=== PATIENT | male | born 1985 | race Hispanic/Latino ===

== ENCOUNTER 2016-10-17 20:55 | Inpatient (IN) | payer OTHER ==
[~2016-10-17] VITALS: Ht 180.3 cm; Wt 136.7 kg
[~2016-10-17 20:55] MED LIST: ANTIVERT 25MG #1 PAC PO; BENZTROPINE MESY1 M1 PO; HALDOL PO; HALOPERIDOL10 M1 PO; HYDROXYZINE HCL50 M1 PO; HYDROXYZINE PAM50 MG PO; KEFLEX500 M1 PO; LUNESTA3 MG PO; SEROQUEL XR300 M1 PO
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
--- NOTE | 2016-10-17 20:59 | NUR ---
PEC RECIEVED COPIED AND PLACED IN CHART
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
--- NOTE | 2016-10-17 21:10 | NUR ---
1 VALUABLES BAG TO SAFE
--- NOTE | 2016-10-17 21:14 | NUR ---
PT REQUESTING TO TAKE A SHOWER. EDUCATED THAT BLOODWORK AND URINE NEED TO BE OBTAINED AND CHANGED INTO SCRUBS
--- NOTE | 2016-10-17 21:30 | NUR ---
blood drawn and sent (blue sst lav) and urine trio sent. pt changed into blue scrubs. medicated with haldol and atarax per Emar. Patient states, "my family doesn't care that i want to kill myself and i have a plan. I have heart failure, they don't care. I've committed a lot of sins and I dont have a . My family thinks I'm retarded. Can i go to [facility] now?"
--- NOTE | 2016-10-17 21:46 | NUR ---
ASSUMED CARE OF PT PER JESUS ENRIQUE. PT SLEEPING IN MIDDLE BROOKB
[2016-10-17 22:16] LABS: ABSOLUTE BASOPHIL COUNT 0 /CUMM (0.0-0.2); ABSOLUTE EOSINOPHIL COUNT 0.2 /CUMM (0.0-0.7); ABSOLUTE GRANULOCYTE CT 4.7 /CUMM (1.4-6.5); ABSOLUTE LYMPH COUNT 2.6 /CUMM (1.2-3.4); ABSOLUTE MONOCYTE COUNT 0.6 /CUMM (0.10-0.60); BASOPHIL % 0.4 % (0.0-2.0); EOSINOPHIL % 2.5 % (0-5); GRANULOCYTE % 57.4 % (42.2-75.2); MEAN CORPUSCULAR HGB 28.5 PG (27.0-31.0); MEAN CORPUSCULAR HGB CONC 33.2 G/DL (33.0-37.0); MEAN CORPUSCULAR VOLUME 85.9 FL (80.0-94.0); MEAN PLATELET VOLUME 9.4 FL (7.4-10.4); PLATELET COUNT 195 /CUMM (130-400); RBC DISTRIBUTION WIDTH 13.7 % (11.5-14.5); RED BLOOD CELL CT 4.89 /CUMM (4.70-6.10); WHITE BLOOD CELL COUNT 8.2 /CUMM (4.8-10.8)
--- NOTE | 2016-10-17 22:57 | NUR ---
PT SLEEPING WITH RR, WILL CONTINUE TO MONITOR, SITTER IN PLACE FOR SAFETY. EAR PLUGS PROVIDED TO PT BY THIS RN FOR SLEEP AND COMFORT.
--- NOTE | 2016-10-17 23:59 | NUR ---
PT SLEEPING WITH RR, BILATERAL CHEST RISE AND FALL NOTED. PT NOTED TO BE SLEEPING ON ABD/LEFT SIDE SNORING. SITTER IN PLACE FOR SAFETY.
--- NOTE | 2016-10-18 01:36 | NUR ---
PT SLEEPING WITH RR, TOSSING AND TURNING, BILATERAL CHEST RISE AND FALL NOTED. WILL CONTINUE TO MONITOR, SITTER IN PLACE FOR SAFETY.
--- NOTE | 2016-10-18 04:01 | NUR ---
PT SLEEPING WITH RR, TOSSING AND TURNING. SITTER IN PLACE FOR SAFETY, WILL CONTINUE TO MONITOR
--- NOTE | 2016-10-18 06:09 | NUR ---
PT AWAKE AND ASKING FOR TISSUES AND WHEN BREAKFAST WILL ARRIVE, THIS RN PROVIDED PT WITH TISSUES AND TOLD PT 0700. SITTER IN PLACE FOR SAFETY.
--- NOTE | 2016-10-18 06:56 | NUR ---
PT AWAKE AND EATING BREAKFAST
--- NOTE | 2016-10-18 08:16 | NUR ---
ASSUMED CARE OF PT WHO IS CURRENTLY SLEEPING. RR EVEN AND UNLABORED. SITTER AT BEDSIDE
[2016-10-18] MEDS ORDERED: HALDOL DEC100 MG/1 M IM (08:52)
--- NOTE | 2016-10-18 09:49 | NUR ---
PT BECOMING ANXIOUS AND ARGUMENTITIVE WITH SITTER REGARDING LEAVING THE DEPARTMENT BECAUSE HE HAS NOT BEEN SEEN BY CRISIS. TALENT SCOUT CURRENTLY SPEAKING WITH PATIENT
--- NOTE | 2016-10-18 10:02 | NUR ---
CRISIS WITH PT FOR EVALUATION
--- NOTE | 2016-10-18 11:12 | NUR ---
RESUMED CARE OF PT FROM PREVIUS RN. PT RESTING QUIETLY ON STRETCHER. PT ADVISED AWAITING FOR CONULT WITH [id number]. NAD NOTED WILL CONTINUE TO MONITOR.
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
--- NOTE | 2016-10-18 11:45 | NUR ---
Patient on PEC, crisis conducting bed search. Referrals sent to [facility], [facility], and [facility].
--- NOTE | 2016-10-18 13:51 | NUR ---
PT RESTING QUIETLY ON STRETCHER. NAD NOTED. VSS. PT USED PHONE AND HAS BEEN CALM AND COOPERATIVE WITH STAFF AT THIS TIME.
--- NOTE | 2016-10-18 14:06 | NUR ---
PT REQUESTING NICOTINE GUM. DR ANDREW MADE AWARE
--- NOTE | 2016-10-18 14:33 | NUR ---
PT REQUESTING A PENTACOSTAL OR PROTESTANT MUSSEL FARMER. VISUAL TRAINING AIDE SERVICES PAGED
--- NOTE | 2016-10-18 15:11 | NUR ---
PT REQUESTING ATARAX AND HALDOL. CONSULT WITH MD FOR ORDERS. PT WAS CALM AND COOPERATIVE AND RETING ON THE STRETCHER.
--- NOTE | 2016-10-18 21:43 | NUR ---
PT C/O ANXIETY, BECOMING AGITATED, REQUESTING MEDS TO HELP HIM TO SLEEP. MD CASIMIRO MADE AWARE. PT MEDICATED WITH HALDOL, ATIVAN, AND ATARAX PER EMAR. SITTER AT BEDSIDE.
--- NOTE | 2016-10-18 23:20 | NUR ---
ASSUMED CARE OF PT PER JESUS PAULINO. PT SLEEPING WITH RR, WILL CONTINUE TO MONITOR. SITTER IN PLACE FOR SAFETY.
--- NOTE | 2016-10-19 01:30 | NUR ---
PT SLEEPING WTIH RR, BILATERAL CHEST RISE AND FALL NOTED. SITTER IN PLACE FOR SAFETY. WILL CONTINUE TO MONITOR
--- NOTE | 2016-10-19 02:15 | NUR ---
PT NOTED TO BE ASLEEP ON STRETCHER. NORMAL RR NOTED. SITTER IN PLACE.
--- NOTE | 2016-10-19 04:38 | NUR ---
PT AWAKE AND ASKED FOR A CUP OF WATER, SITTER IN PLACE FOR SAFETY.
--- NOTE | 2016-10-19 06:57 | NUR ---
patient remains sleeping at present. lights remain dimmed to promote rest and comfort. sitter remains in place for constant observation and patient safety. will continue to monitor.
--- NOTE | 2016-10-19 07:13 | NUR ---
PATIETN AMB TO RESTROOM. DID NOT REQUIRE ASSISTANCE - SITTER IN PLACE FOR SAFETY. AMB RETURN TO STRETCHER WITHOUT ASSISTANCE.
--- NOTE | 2016-10-19 08:53 | NUR ---
WAITING ON PHARMACY FOR HALDOL 10MG.
--- NOTE | 2016-10-19 09:07 | NUR ---
MED WITH ATARAX AND HALDOL PER PATIENT REQUEST. SITTER REMAINS IN PLACE FOR CONSTANT OBSERVATION AND PATIENT SAFETY.
--- NOTE | 2016-10-19 13:15 | NUR ---
RESUMED CARE OF PT FROM PREVIOUS RN. PT RESTING QUIETLY ON STRETCHER. PT IS CALM AND COOPERATIVE WITH STAFF. NAD NOTED. VSS.
--- NOTE | 2016-10-19 13:36 | NUR ---
PT RESTING ON STRETCHER. PT VOICES CONCERN THAT HIS "MEDICATIONS ARE NOT STABILIZING [HIM]". pT APPEARS SLIGHTLY ANXIOUS BUT IS STILL ABLE TO BE RE-DIRECTED. PT PROVIDED A SNACK. NAD NOTED. WILL CONTINUE TO CLOSELY MONITOR.
--- NOTE | 2016-10-19 14:25 | NUR ---
PT RESTING ON STRETCHER IN HALLWAY STATING HE COULD NOT BREATH. PT IN AD. PT STATES IN CHINESE THAT HE IS "HERE TO REGULATE HIMSELF MEDS". PT WAS ABLE TO BE EASILY RE-DIRECTED. PT PROVIDED A SNACK AND CONSTANT OBS MAINTAINED. NAD NOTED. VSS.
--- NOTE | 2016-10-19 14:55 | NUR ---
PT WAS FOUND TO BE INAPPROPRIATELY TOUCHING HIMSELF IN THE HALLWAY. PT ADVISED THIS WAS NOT APPROPRIATE BEHAVIOR AND WAS EASILY RE-DIRECTED. pT IS STILL VERY ANXIOUS IN REGARDS TO HIS PLAN OF CARE. AWAITING FURTHER ORDERS AND DISPO, NAD NOTED. VSS.
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
--- NOTE | 2016-10-19 18:05 | NUR ---
PT COOPERATIVE IN ROOM WITH SITTERS PRESENT. CONTINUES TO PRESENT WITH SOMEWHAT BIZARRE, FLAT AFFECT. COOPERATIVE AND FOLLOWING BEHAVIORAL EXPECTATIONS AT THIS TIME. OFFERS NO PHYSICAL COMPLAINTS
--- NOTE | 2016-10-19 19:41 | NUR ---
NOTIFIED OF PTS BP BY [facility]. AWARE. PLAN IS TO RECHECK IN AN HOUR
--- NOTE | 2016-10-19 20:27 | NUR ---
PT NOW PLACED IN RM 14. PT PROVIDED SNACK AND TOOK SHOWER PRIOR TO DINNER. PT IS CALM AD COOPERATIVE AT THIS TIME. NAD NOTED. VSS.
--- NOTE | 2016-10-19 21:53 | NUR ---
PT MEDICATED WITH 10MG HALDOL AND 25MG ATARAX PRN AT PTS REQUEST
--- NOTE | 2016-10-19 22:37 | NUR ---
PT RESTING QUIETLY. NAD NOTED. VSS. CONTINUOUS OBS MAINTAINED. WILL CONTINUE TO MONITOR.
--- NOTE | 2016-10-20 | NUR ---
PT RESTING ON BED. NO DISTRESS NOTED. SITTER IN PLACE.
--- NOTE | 2016-10-20 02:02 | NUR ---
PT REMAINS ASLEEP AT THIS TIME W/RR NOTED. NAD. EQUAL CHEST RISE AND FALL. SITTER REMAINS IN CLEAR VIEW FOR SAFETY.
--- NOTE | 2016-10-20 04:17 | NUR ---
PT REMAINS ASLEEP AT THIS TIME W/RR NOTED. NAD. SITTER IN ATTENDANCE
--- NOTE | 2016-10-20 06:08 | NUR ---
PT INTERMITTENTLY AWAKE/BACK TO SLEEP. PT OFFERING NO COMPLAINTS AT THIS TIME. NAD. RR NOTED. SITTER REMAINS AT BEDSIDE
--- NOTE | 2016-10-20 08:02 | NUR ---
PT SLEEPING, REG RR NOTED. SITTER IN ATTENDANCE.
--- NOTE | 2016-10-20 09:45 | NUR ---
PT UP IN ROOM, STATING "I NEED TO GO, I HAVE COURT AND I HAVE CARE." PT REDIRECTABLE AT THIS TIME, UNDERSTANDS THAT HE NEEDS TO WAIT FOR CRISIS, HOWEVER, STATING "THEY NEED TO SEE ME FIRST, I CANT STAY HERE, IM NOT GOING TO OTHER HOSPITALS."
--- NOTE | 2016-10-20 11:05 | NUR ---
POC FOR PT TO BE ADMITTED.
--- NOTE | 2016-10-20 11:47 | NUR ---
MEDICATED WITH ATARAX PO (SEE MAR)
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
--- NOTE | 2016-10-20 13:55 | NUR ---
PT RESTING IN ROOM, CALM/COOPERATIVE.
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
--- NOTE | 2016-10-20 15:31 | NUR ---
ASSUMED CARE OF PT. PT SITTING IN CHAIR IN ROOM. ASKING FOR SOMETHING TO EAT. OTHERWISE WITHOUT COMPLAINTS
--- NOTE | 2016-10-20 15:55 | NUR ---
PT SITTING UP IN CHAIR. LEG BOUNCING CONSISTENT WITH ANXIETY. PT ASKING FOR SOEMTHING TO RELAX HIM. GIVEN IM ATIVAN. PT GIVEN BOX DINNER
--- NOTE | 2016-10-20 16:27 | NUR ---
REPORT CALLED TO LEI IN [facility]
--- NOTE | 2016-10-20 17:09 | NUR ---
SAVAGE RN FROM "[facility]" RETURNED CALL FROM A CONNIE STAFF MEMBER-POSSIBLY SUNI TOY STUFFER. SAVAGE'S NUMBER IS [phone] IF WE HAVE ANY QUESTIONS FOR HER
[2016-10-20 19:54] VITALS: BP 165/97
--- NOTE | 2016-10-20 21:13 | NUR ---
PT ADJUSTING TO THE UNIT. PT SOMEWHAT BIZARRE, BUT NO THREATENING BEHAVIORS. PT QUIET AND ON THE PERIPHERY.
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
[2016-10-21 07:59] VITALS: BP 152/84
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
--- NOTE | 2016-10-21 12:19 | SOCIAL WORKER PROG NOTE PSYCH ---
Social Work Progress Note Progress Note 11:10am This health science writer met with patient. Patient presented as guarded and irritable. Patient was unwilling to discuss current stressors and/or events that led to this hospitalization other than to say that he had been suicidal. Upon discussing outpatient providers, patient acknowldeged that he has been engaged in treatment at [facility] and would like to return to them after discharge. Patient's irritability increased when reviewing the TOO for Care and he left the room. Patient will be approached at a later time regarding the TOO.
[2016-10-21 12:36] VITALS: BP 145/85
--- NOTE | 2016-10-21 14:37 | NUR ---
PT IS EASILY IRRITATED THIS SHIFT. BECAME ANGRY WHEN HE THOUGHT THE "NURSE DIDN'T CALL ME FOR MY MEDS", WHEN IN REALITY HE DIDN'T HAVE ANY MEDICATION DUE AT THE MOMENT. PT CAN BE DEMANDING AT TIMES ASKING FOR PAPER, COLORING PENS/MARKERS. PT IS REDIRECTABLE FOR THE MOST PART. INTERMITTENTLY ATTENDING GROUPS THIS AM. VS ARE STABLE AND DENIES ANY SI/HI TO THIS MHW.
[2016-10-21 16:03] VITALS: BP 152/95
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
[2016-10-21 20:19] VITALS: BP 144/85
--- NOTE | 2016-10-21 22:08 | NUR ---
PT IN ROOM MAJORITY OF THE EVENING. HIS INTERACTIONS WITH HIS PEERS HAVE BEEN MINIMAL. PT IS EASILY IRRITATED ABOUT SMALL THINGS SUCH OPENING HIS DOOR TO CHECK ON HIM, NOT PASSING OUT MEALS RIGHT AWAY WERE JUST A FEW THINGS THAT IRRITATED HIM TONIGHT. PT SPENT MOST OF THE NIGHT DRAWING PICTURES OF ROOSTERS, AND CHICKENS. HE IS DEMANDING WHEN HE DOES NOT GET HIS NEEDS MET RIGHT AWAY. PT DENIES THOUGHTS TO HURT HIMSELF WHEN ASKED.
[2016-10-22 08:20] VITALS: BP 134/72
--- NOTE | 2016-10-22 11:01 | CP SOUTH PROGRESS NOTE PSYCH ---
Psych (Inpt) Progress Note Progress Note Include the following elements, when applicable: Involvement in the active treatment of the patient with behavioral observations of the patient and the patient's response to the treatment. Review of the ongoing treatment process in the context of the treatment plan. Indication of how multi-disciplinary staff members are carrying out the treatment plan. Plans for future interventions and recommendations for revision of the treatment plan. Liaison with other physicians/providers. Progress Note: I discussed this patient's progress to date, current mental status, treatment process in the context of the treatment plan, and discharge planning with staff/ team in the daily morning inpatient team meeting. I also met with the patient myself in individual session. Current Medications Sig/Joe Start time Last Medication Dose Route Stop Time Status Admin Benztropine Mesylate 1 MG BID 10/20 2199 AC 10/22 PO 0939 Haloperidol 100 MG Q30D 10/24 1000 CANr IM Haloperidol 5 MG .STK-MED ONE 10/21 1820 DC PO 10/21 182 Haloperidol 10 MG AT BEDTIME 10/20 2199 AC 10/21 PO 215 Haloperidol 5 MG Q6-PRN PRN 10/20 2144 AC 10/21 PO 1820 Haloperidol 100 MG .[EVERY 4 WEEKS] 10/20 213 CAN IM Hydroxyzine HCl 25 MG Q6-PRN PRN 10/20 2144 AC 10/21 PO 215 Nicotine 2 MG Q2 HRS NEEDED PRN 10/20 2144 AC 10/21 PO 1819 Vital Signs Date Time Temp Pulse Resp B/P B/P Pulse O2 O2 Flow FiO2 Mean Ox Delivery Rate 10/22 0820 97.6 64 134/72 10/21 2018 98.1 71 144/85 10/21 1603 77 152/95 10/21 1236 60 145/85 Laboratory Tests 10/22 0625 Chemistry Potassium (3.5 - 5.1 mmol/L) 4.2 Triglycerides (<150 mg/dL) 94 Cholesterol (< 200 MG/DL) 151 LDL Cholesterol, Calc (65 - 129 mg/dL) 108 HDL Cholesterol (40 - 60 mg/dL) 25 L Cholesterol/HDL Ratio (0.00 - 4.88 %) 6 H TSH (0.270 - 4.200 uIU/mL) 3.660 A: Chart, progress notes, vital signs and medication list reviewed. Vital signs within normal limits. TSH wnl. Low HDL and high Cholesterol/HDL ratio. Rpt potassium wnl. Per nursing staff, patient shows better behavioral and physical control today. Less irritable. More visible in the milieu, drawing. Interacting minimally but appropriately with staff. [facility] confirmed that patient is an active patient. Current medication list received: Haldol 10mg nightly, Haldol Decanoate 100mg IM [id number] , Hydroxyzine 50mg BID PRN anxiety. Haldol Dec last administered on 09/23/16, confirmed by nursing supervisor dials, Regi, of [facility]. Spoke to JESUS Burleson, from [facility]. States he has worked with patient for the last 2-3 years. At baseline patient is paranoid and suspicious of is family and neighbors. To Benjy' knowledge he has never physically acted out towards his neighbors. Reports that in April 2016 he had been on Haldol 20mg po nightly for psychosis, which he did well on. Reports patient tolerated this w/o symptoms of EPS. However, patient had reported that he did not like how he felt on this dose. He began refusing dosage. At that time, Benjy had a conversation with Dr. Galloway from [facility] which resulted in Dr. Galloway decreasing HS dose to 10mg nightly. Benjy reports that the patient's symptoms were better managed on 20mg nightly in addition to Haldol Dec. He confirmed Haldol Dec dosage of 100mg IM [id number]. Patient seen at 3:00PM. Patient reports meeting / Care embedded case manager Beata on unit today. He requested tx team speaks to her to arrange after care appointments. Reasurred patient that would take place. States feeling on edge today. Appears quite somatic. Reports he feels he had a heart attack last night. States he had one at age 23 in [place]. Could not remember the name of the hospital where he had been hospitalized. Denies being treated by a brew house supervisor in his lifetime. VSS. Denies palpitations, shortness of breath, dizziness. No significant cardiac findings on H&P per assistance representative Dr. Rian Mora. Patient presently asymptomatic. Today, patient denies auditory and visual hallucinations. + somatic paranoia, preoccupied. Feels his body is "destructing." Could not articulate what he means by this. Became briefly tearful. Reports racing thoughts, variable moods. Made inconsistent reports regarding his quality of sleep. First stated he cannot sleep at night, then reports sleeping well by using "strategies," i.e. counting backwards from 100. Reports appetite and energy level are normal. Recommendation made to add Depakote for mood stabilization. Patient refused. Stated he will only take Haldol. He requested an increase in HS dose to 20mg. Informed him we will first obtain an EKG to r/o any contraindication to increase current dose of Haldol. Also informed patient that he is due for next dose of Haldol Decanoate tomorrow. He verbalized understanding, is agreeable. Patient tolerating medications well, denies SEs. Amenable to tx plan discussed above. P: -monitor for safety, mood, psychosis, SI. -obtain EKG; if wnl will increase Haldol to 15mg po nightly. Will continue PRN Haldol 5mg Q6H agitation/psychosis. -cont Cogentin 1mg BID. -Haldol Decanoate 100mg IM scheduled for tomorrow. -dispo planning per primary team.
--- NOTE | 2016-10-22 12:16 | NUR ---
PT DID NOT ATTEND ANY GROUPS THIS MORNING AND HE ISOLATED IN HIS ROOM. HE TAKES HIS MEDS WITHOUT A PROBLEM. HE DENIED ANY THOUGHTS OF SUICIDE OR SELF HARM WHEN ASKED
[2016-10-22 12:29] VITALS: BP 142/66
--- NOTE | 2016-10-22 15:57 | SOCIAL WORKER PROG NOTE PSYCH ---
Social Work Progress Note Progress Note This chart writer was informed by nursing staff that the patient was meeting with his rifle case repairer, Beata aBiley, from [facility] who requested to meet with me. This chart writer introduced self to Lorenzo Bailey. Patient inquired as to why I was there and was reminded that I am patient's social security specialist. He continues to present as guarded with this chart writer. Patient was in agreement with this chart writer speaking with Lorenzo Bailey following their discussion. 3:22pm Beata Bailey was contacted by phone as this chart writer was not available to meet with her following her meeting with the patient. She stated that the patient typically presents as defensive and paranoid when he is asked questions. She stated that he is guarded with his therapist at [facility] and generally more open/ less guarded with the [facility] psychiatrist. Beata stated that in addition to medication management, individual therapy and case management he utilizes visiting nurse services, [facility], (primary nurse, Shalini Terry RN, ). Beata also added that the patient has a pending court case and will inform this chart writer if she is informed of the date. [facility] will be contacted when a discharge date is identified in order to schedule outpatient appointments.
[2016-10-22 17:17] VITALS: BP 144/60
[2016-10-22 20:01] VITALS: BP 160/95
--- NOTE | 2016-10-22 20:51 | NUR ---
PT IS ISOLATIVE AND WITHDRAWN, REMAINING IN ROOM FOR MAJORITY OF EVENING. MINIMAL INTERACTION WITH PEERS OR STAFF. PT HAS A VERY IRRITABLE EDGE AND REPORTS "I WANT TO LEAVE RIGHT NOW." OVERALL COOPERATIVE AND COMPLIANT WITH STAFF. NO COMPLAINTS OR SI REPORTED. PT HAS ANXIOUS MOOD AND CONSTRICTED/IRRITABLE AFFECT.
[2016-10-23 07:44] VITALS: BP 120/94
--- NOTE | 2016-10-23 10:34 | NUR ---
PT IS IRRITABLE AT TIMES-- YELLING AT STAFF MEMBERS FOR OPENING HIS DOOR DURING ROUTINE Q15'S. PT WAS EXPLAINED TO THAT THIS IS ROUTINE AND NECESSARY AND HE RETREATED BACK TO HIS ROOM. PT IS EASILY AGITATED WHEN ASKED TO COME OUT FOR VS/MEDICATIONS. NOT ATTENDING GROUPS. VS ARE STABLE AND DENIES ANY SI/HI TO THIS MHW.
[2016-10-23 12:13] VITALS: BP 130/82
--- NOTE | 2016-10-23 12:16 | SOCIAL WORKER PROG NOTE PSYCH ---
Social Work Progress Note Progress Note Determination Status: PENDED The services requested require additional review. You will be contacted regarding the status of this request if further information is needed. An authorization decision will be made within the required timeframes and details of that decision may be found under the member's authorization history. Member Name Member ID Member Subscriber Name Subscriber ID IRVING ROE JR [id number] IRVING ROE [id number] Pended Authorization # Client Authorization # Type of Request [id number] CONCURRENT Date of Admission/ Start of Services Requested From Submission Date 10/20/2016 10/23/2016 10/23/2016
--- NOTE | 2016-10-23 14:24 | SOCIAL WORKER PROG NOTE PSYCH ---
See Addendum Social Work Progress Note Progress Note This technical publications writer spoke with patient regarding interest in a family meeting. Patient initially appeared interested, however, ultimately stated that a meeting with his family is not needed as "I'm 31 years old." Patient continues to present as guarded during his discussion with this technical publications writer.
--- NOTE | 2016-10-23 15:41 | CP SOUTH PROGRESS NOTE PSYCH ---
Psych (Inpt) Progress Note Progress Note Include the following elements, when applicable: Involvement in the active treatment of the patient with behavioral observations of the patient and the patient's response to the treatment. Review of the ongoing treatment process in the context of the treatment plan. Indication of how multi-disciplinary staff members are carrying out the treatment plan. Plans for future interventions and recommendations for revision of the treatment plan. Liaison with other physicians/providers. Progress Note: I discussed this patient's progress to date, current mental status, treatment process in the context of the treatment plan, and discharge planning with staff/ team in the daily morning inpatient team meeting. I also met with the patient myself in individual session. Current Medications Sig/Joe Start time Last Medication Dose Route Stop Time Status Admin Benztropine Mesylate 1 MG Q4 HRS NEEDED PRN 10/22 1545 AC PO Benztropine Mesylate 1 MG BID 10/20 2200 AC 10/23 PO 0750 Haloperidol 100 MG Q30D 10/23 1000 CAN IM 10/23 1001 Haloperidol 100 MG Q30D 10/23 1000 DC 10/23 IM 10/23 1001 1146 Haloperidol 15 MG AT BEDTIME 10/22 2200 AC 10/22 PO 2214 Haloperidol 5 MG Q6-PRN PRN 10/20 2145 AC 10/23 PO 0750 Hydroxyzine HCl 50 MG .STK-MED ONE 10/22 194 DC PO 10/22 194 Hydroxyzine HCl 25 MG Q6-PRN PRN 10/20 2145 AC 10/22 PO 1941 Lorazepam 1 MG Q4 HRS NEEDED PRN 10/23 1000 AC PO Nicotine 4 MG Q2 HRS NEEDED PRN 10/22 1515 AC PO Vital Signs Date Time Temp Pulse Resp B/P B/P Pulse O2 O2 Flow FiO2 Mean Ox Delivery Rate 10/23 1213 84 130/82 10/24 743 98.2 61 120/94 10/22 2000 98.5 61 160/95 10/22 1717 66 144/60 A: Chart, progress notes, vital signs and medication list reviewed. Vital signs within normal limits. EKG reviewed, showed sinus rhythm with no significant changes. No new lab results today. Per nursing staff, patient keeps mostly to himself, somewhat guarded, minimally interacts with others. Less irritable, attending to adls, not attending groups. Patient seen in room at 3:43PM. Initially observed laying in bed. Acknowledged health science writer and sat up to talk. States that his "mental health is well." Reports mood is "normal." Patient focused on discharge, anxious about court appearance on 10/27/16 for recent disorderly conduct charge. Denies acute symptoms of anxiety and depression. Denies feeling hopeless, helpless, worthless and guilty. Denies AH and VH. Still guarded, but less suspicious today than in prior encounters. Offered no somatic complaints. Remains focused on returning to [facility] for outpatient tx. Denies SI and HI. No evidence of overt paranoia towards anything particularly, or of delusional/illogical thought content. Thought process concrete, goal directed. Cognition grossly intact. Pt reports tolerating recent increase in Haldol to 15mg at bedtime. Received Haldol Dec 100mg IM today. Denies SEs, no evidence of movement disorder, agreeable to continue taking. P: -cont monitoring for safety, mood, SI, psychosis. -cont Haldol 15mg nightly, cont Cogentin 1mg BID; cont Haldol 5mg Q6H PRN for agitation/psychosis. -tentative discharge tomorrow w/ f/u at [facility] for individual therapy/med management/case management.
[2016-10-23 16:04] VITALS: BP 140/73
[2016-10-23 19:50] VITALS: BP 145/95
--- NOTE | 2016-10-23 20:46 | NUR ---
PT IN ROOM MOST OF THE EVENING DRAWING. HE IS IRRITABLE AT TIMES, BUT KEEPS TO HIMSELF OTHERWISE. PT IN THE [place] FOR DINNER, AND HAS BEEN COMING OUT FOR VITALS. HE DENIES THOUGHTS TO HURT HIMSELF WHEN ASKED.
--- NOTE | 2016-10-24 07:16 | NUR ---
PT WITH TENTATIVE DC TODAY. HE RECEIVED HALDOL DECANOATE SHOT YESTERDAY. PT SLEPT.
[2016-10-24 07:44] VITALS: BP 125/73
--- NOTE | 2016-10-24 09:04 | CP SOUTH PROGRESS NOTE PSYCH ---
Psych (Inpt) Progress Note Progress Note Include the following elements, when applicable: Involvement in the active treatment of the patient with behavioral observations of the patient and the patient's response to the treatment. Review of the ongoing treatment process in the context of the treatment plan. Indication of how multi-disciplinary staff members are carrying out the treatment plan. Plans for future interventions and recommendations for revision of the treatment plan. Liaison with other physicians/providers. Progress Note: Chart, progress notes, labs, vital signs and medication list reviewed. Vital signs within normal limits. No new lab results today. Current Medications Sig/Joe Start time Last Medication Dose Route Stop Time Status Admin Benztropine Mesylate 1 MG Q4 HRS NEEDED PRN 10/22 1545 AC PO Benztropine Mesylate 1 MG BID 10/20 2200 AC 10/24 PO 0821 Haloperidol 100 MG Q30D 10/23 1000 DC 10/23 IM 10/23 1001 1146 Haloperidol 15 MG AT BEDTIME 10/22 2200 AC 10/23 PO 2145 Haloperidol 5 MG Q6-PRN PRN 10/20 2145 AC 10/23 PO 0750 Hydroxyzine HCl 25 MG Q6-PRN PRN 10/20 2145 AC 10/22 PO 1941 Lorazepam 1 MG Q4 HRS NEEDED PRN 10/23 1000 AC PO Nicotine 4 MG Q2 HRS NEEDED PRN 10/22 1515 AC PO Vital Signs Date Time Temp Pulse Resp B/P B/P Pulse O2 O2 Flow FiO2 Mean Ox Delivery Rate 10/24 0744 96.4 92 125/73 10/23 1950 97.3 84 145/95 10/23 1604 92 140/73 10/23 1213 84 130/82 A: Chart, progress notes, vital signs and medication list reviewed. Vital signs within normal limits. No new lab results today. Patient seen at 8:40AM. Patient presents in good behavioral and physical control. Appears mildly restless, fidgety on encounter. States his mood is "good." Appears less guarded since yesterday. Focused on discharge today. States he would like to speak to his pillowcase sewer, Beata, at [facility], regarding senior care diversion. Patient determined to get to court on 10/27/16. Affect constricted, slightly irritable. States he is anxious about upcoming court, but showed fair insight that recent charge cannot be addressed until he shows to court. He denies suicidal and homicidal ideation. Denies auditory and visual hallucinations. Slightly paranoid, however, consistent to baseline reports from both his pillowcase sewer and visiting nurse who have known him for years. No evidence of ron delusions. Thought process concrete, goal directed. Cognition grossly intact. Patient showed good eye contact. Speech was irritable at times, otherwise normal in rate, tone and volume. He offered no complaints. Reports tolerating medications well, denies side effects. There is no evidence of movement disorder. Denies akathisia. He reports feeling safe and ready for discharge, and is very eager to follow up at [facility] for continued outpatient treatment and his visiting nurse. P: -discharge today to home/self care. -f[facility]u at [facility] for outpatient [facility] and [facility] for daily med administration (see D/C instructions for appointments). -all discharge medications e-prescribed to [facility] in [place], [place], today. -patient advised that in the event of an emergency to call [phone]/go to the nearest emergency department; he verbalized understanding of instructions.
--- NOTE | 2016-10-24 09:23 | Patient Discharge Instructions ---
Psych Discharge Inst General Discharge Information Reason for Admission: Suicidal ideation Psy Discharge Primary Diag+ Schizoaffective disorder Psy Discharge Secondary Diag+ Hypertension by history Summary Tests/Major Procedures Lab Cholesterol/HDL Ratio 6 % H 10/22/16 0625 HDL Cholesterol 25 mg/dL L 10/22/16 0625 Studies Pending at DC: N/A Patient Instructions Contact Information Your Psychiatrist on [facility] was PETER BURRIS,RAFIQ Hanna/ALBA FULLER APRN. * If you are experiencing an emergency related to this hospitalization, please call [phone] to contact the treating psychiatrist or the psychiatrist-on- call. * To Request a copy of your medical records, please contact the Medical Records Department at [phone]. * To request results of studies pending at the time of discharge, please call [phone]. * Continue your Medications until directed to stop by your Healthcare provider. General Medication Information Please continue to take your new medications and your continued home medications , unless otherwise indicated on your discharge medication list, or unless directed by your or ANA to stop them. Special Instructions: DIET: Regular. ACTIVITY LEVEL: No restrictions. Advance Directives Does the Patient have Medical Advance Directives No/Refused further info Does Pt have Psychiatric Advance Directives? No/Refused further info Does Patient have a Designated Surrogate Decision Maker: No Information About Psychiatric Advance Directives Provided? Refused Discharge Plan Post Hospital Treatment Plan: Provider Referral Service Date: 10/30/16 Referred To: [[facility]] Notes: [address] [phone] *Individual therapy appointment: 3pm, 10/30/16 with Randi Villalobos. Provider Referral Service Date: 11/19/16 Referred To: [[facility]] Notes: [address] [phone] *Medication appointment: 11/19/16, 6:20pm with Dr. Galloway. Provider Referral Service Date: 10/24/16 Referred To: [[facility]] Notes: [facility] will see patient on the evening of 10/24/16 following patient's discharge from [facility]. Pharmacy used is [facility]. Provider Referral Service Date: 10/30/16 Referred To: [[facility]] Notes: [address], [place] [phone] *Case management appointment with Beata Bailey on 10/30/16 at 2pm. In the event of an emergency, call [phone]/go to the nearest emergency department.
--- NOTE | 2016-10-24 11:12 | NUR ---
PT IS TENTATIVELY SCHEDULED TO DISCHARGE TODAY, PRESENT WITHIN COMMUNITY AND SOCIAL WITH PEERS AND STAFF, NO ISSUES OR COMPLAINTS REPORTED OR OBSERVED. WHEN ASKED DIRECTLY DENIES SI/HI/MTZ AT THIS TIME. DISCHARGE DISPO DISCUSSED WITH WITH PT AND HAS A POSITIVE UNDERSTANDING AND VERBALIZES MOTIVATION, FUTURE ORIENTED, MOOD IS STABLE WITH A FULL RANGE AFFECT. UNDERSTANDS MEDICATION REGIMEN AND INFORMATION PACKETS RE: SI PREVENTION, DEPRESSION, SCHIZOAFFECTIVE DISORDER GIVEN AND PT RESOURCE GUIDE REVIEWED WITH ALL OTHER PERTINANT INFORMATION I.E. [facility], [facility], SUICIDE HOTLINE NUMBERS ETC AND VERBALIZED UNDERSTANDING AND NO QUESTIONS.
[2016-10-24] MEDS ORDERED: NICORELIEF4 MG PO (11:50)
[2016-10-24] MEDS ORDERED: HALOPERIDOL10 M1 PO (11:50)
[2016-10-24] MEDS ORDERED: BENZTROPINE MESY1 M1 PO (11:50)
[2016-10-24] MEDS ORDERED: HYDROXYZINE HCL50 M1 PO (11:50)
[2016-10-24] MEDS ORDERED: HALDOL DEC100 MG/1 M IM (11:50)
--- NOTE | 2016-10-24 13:40 | NUR ---
1215 DISCHARGED HOME SELF CARE
--- NOTE | 2016-10-24 15:08 | SOCIAL WORKER PROG NOTE PSYCH ---
Social Work Progress Note Progress Note This radio script writer met with patient to review discharge plans as follows: -[facility], individual therapy with Randi Villalobos on 10/30/16 at 3pm -[facility], medication appointment with Dr. Galloway on 11/19/16 at 6:20pm -[facility], case management with Beata Bailey on 10/30/16 at 2pm -[facility]: visiting nurse will visit patient at his home this afternoon/evening Patient was in agreement with attending/accepting these appointments. He was offered an appointment with Jose Manuel Cramer APRN through [facility] due to the amount of time until his medication appointment at [facility]. He refused this appointment. He was also offered a ride via [employer] from the hospital, however, refused this as well. Patient stated that he has court scheduled for , however, Beata Bailey (oil field caser) was unable to confirm this. She was unable to meet with him today, but will follow up with him on Thursday in addition to their appointment on 10/30/16. This radio script writer was provided with the fax number for [facility] (spoke with Benjy): [phone]. W10 and patient health summary was faxed to [facility] on 10/24/16 at 2:58pm, fax confirmation sheet printed and filed with documents in the patient's chart. This radio script writer faxed W10 and patient health summary to [facility] on 10/24/16 at 2: 58pm. Fax confirmation sheet and documents filed in patient's chart.
--- NOTE | 2016-10-24 16:03 | DISCHARGE SUMMARY REPORT-PSYCH ---
Visit Information Visit Dates/Diagnosis' Admission Date: 10/20/16 Discharge Date: 10/24/16 Reason for Admission: Physical agitation and suicidal ideation in the setting of recent arrest. Psy Discharge Primary Diag: Schizoaffective disorder Psy Discharge Secondary Diag: Hypertension by history Hospital Course Significant Lab Findings: Lab Cholesterol/HDL Ratio 6 % H 10/22/16 0625 HDL Cholesterol 25 mg/dL L 10/22/16 0625 10/22/16 EKG: Sinus rhythm with a rate of 64. Consider inferior infarct. Borderline R wave progression, anterior leads. No significant change since previous tracing. Borderline EKG confirmed by hydramatic specialist Dr. Koby Hsu. Course Complications: None. Consultations: The patient was seen for admission history and physical by retail merchandiser Dr. Rian Mora. Please see his note for additional information. Allergies: Coded Allergies: No Known Drug Allergies (08/18/15) Hospital Course/TX Response: The patient was monitored on the unit for safety, mood, suicidal and homicidal ideation, agitated behavior and psychosis. He participated in multimodal treatments on the unit. Haldol 10mg po nightly was initially continued on admission for paranoia. Patient was agreeable to a gradual increase to 15mg nightly. The patient had last recieved Haldol Decanoate 100mg IM on 09/23/16, which was confirmed with [facility] nursing supervisor shrimp pond. The patient received his scheduled monthly Haldol Decanoate 100mg IM on 10/23/16 at 11:46AM. Cogentin 1mg twice daily was continued for muscle stiffness. Hydroxyzine PRN was continued for anxiety. The patient tolerated all medications well, he denied side effects and did not exhibit signs or symptoms of a movement disorder. During the hospital course, the patient's mood and affect improved. Suicidal ideation remitted. He consistently denied auditory and visual hallucinations, and homicidal ideation. The patient continued to appear slightly paranoid, however, per collateral from both his case assistant at [facility] and visiting nurse, this is consistent with his baseline. The patient refused having family involved in a his inpatient care. He was agreeable to return to [facility] for case management, individual therapy and medication management. He was also willing to resume services with [facility] for daily medication administration. On the date of discharge, 10/24/16, the patient presented in good behavioral and physical control. Alert and oriented x 3. Appeared mildly restless, fidgety on encounter. Stated his mood is "good." Appeared less guarded since yesterday. Focused on discharge today. Stated he would like to speak to his case assistant, Beata, at [facility], regarding residential diversion. Patient appeared determined to get to court on 10/27/16. Affect constricted, slightly irritable. Stated he is anxious about upcoming court, but showed fair insight that recent charge cannot be addressed until he shows to court. He denied suicidal and homicidal ideation. He stated and also believed he will not harm himself or others. Denied auditory and visual hallucinations. Slightly paranoid, however, consistent to baseline reports from both his case assistant and visiting nurse who have known him for years. No evidence of ron delusions. Thought process concrete, goal directed. Cognition grossly intact. Patient showed good eye contact. Speech was irritable at times, otherwise normal in rate, tone and volume. He offered no complaints. Reported tolerating medications well, denied side effects. No evidence of movement disorder. Denied akathisia. He reported feeling safe and ready for discharge, and appeared eager to follow up at [facility] for continued outpatient treatment and with his visiting nurse. Discharge HBIPS - Tobacco Use Treatment Offered Post DC Medications Offered: Script Given-See Med List Post DC Tobacco Treatment Plan: Refused Tobacco Tx Pgm - EtOH/Drug Use D/O Treatment Offered Post DC Medications Offered: NA-No EtOH/Drug Use D/O Post DC EtOH/SubAbuse TX Plan: NA-No EtOH/Drug Use D/O Metabolic Screening - Screen if on a Neuroleptic Medication - Metabolic screening should include: - Blood Pressure, BMI, Glucose or Hgb A1c, & a - Lipid profile from within the past 365 days. Metabolic Screening () Not Applicable, patient not on a neuroleptic. OR ([X]) Patient on a neuroleptic(s) . Enter below results for Glucose or Hemoglobin A1C, and lipid panel if obtained during the last 365 days. BMI: 42.000 Blood Pressure: 125/73 Laboratory Results (If applicable): Lab Cholesterol 151 MG/DL 10/22/16 0625 Cholesterol/HDL Ratio 6 % H 10/22/16 0625 Glucose 101 mg/dL H 10/17/16 2125 HDL Cholesterol 25 mg/dL L 10/22/16 0625 LDL Cholesterol, Calc 108 mg/dL 10/22/16 0625 Triglycerides 94 mg/dL 10/22/16 0625 Discharge Instructions General Discharge Information Discharge Medications: Discharge Medications- (Dose, route, freq, indication): START taking these NEW Home Medications: Nicotine Polacrilex Dose: ORAL, EVERY 2 HOURS Qty: 1 Sent to (Nicorelief) 4 MG 4 Milligram NEEDED as needed for Refills: 0 Pharm 1 GUM nicotine cravings Take 1 piece po Q2HRs PRN for nicotine cravings. NTE 5 pieces/24 hours. Haloperidol Dose: ORAL, AT BEDTIME for Qty: 41 Sent to (Haloperidol) 10 MG 15 Milligram clear thoughts Refills: 0 Pharm 1 TABLET Take 1 and 1/2 tabs (15mg) po QHS. CHANGES to Home Medications: Benztropine Mesylate Dose: ORAL, TWICE DAILY for Called in to (Benztropine Mesylate) 1 1 Tablet muscle stiffness Pharm 1 MG TABLET Take 1 tab po BID. (changed from: TWICE DAILY for DIRECTED [ No Instructions ]) Hydroxyzine HCl Dose: ORAL, 2 x Daily as Sent to (Hydroxyzine HCl) 50 MG 1 Tablet needed as needed for Pharm 1 TABLET anxiety Take 1 tab po BID PRN. (changed from: NEEDED as needed for DIRECTED [ No Instructions ]) Haloperidol Decanoate Dose: INTRAMUSC, ONCE A MONTH Sent to (Haldol Decanoate 100) 1 Milliliters for clear thoughts Pharm 1 100 MG/ML AMPUL Take 100mg/ml IM Q30 days. Last given: 10/23/16. Next due: 11/23/16. (changed from: ONCE A MONTH for MENTAL HEALTH [ No Instructions ]) STOP taking these DISCONTINUED Home Medications: Quetiapine Fumarate (Seroquel Dose: ORAL, Every night for MENTAL XR) 300 MG TAB.ER.24H 1 Tablet HEALTH Reason Stopped: Per Doctor Decision Haloperidol (Haloperidol) 10 Dose: ORAL, AT BEDTIME for DIRECTED MG TABLET 1 Tablet Reason Stopped: Per Doctor Decision 1: [facility] ([address] [place], [place] [id number] Your Preferred Pharmacy [facility] ([address] [place], [place] [id number] Multiple Neuroleptics: ([X]) Not Applicable OR Document below three failed attempts at monotherapy, or a plan to taper to monotherapy, or augmentation of Clozapine. () Patient's Diet: Regular. Patient's Activity: No restrictions. DC Disposition: Patient to return home. Recommendations: The patient was advised to please take his medications as prescribed. He was advised to follow up with scheduled outpatient appointments at [facility] and with visiting nurse for daily medication administration. He was advised that in the event of an emergency to call [phone] to the nearest emergency department. Patient verbalized understanding of all instructions. Referred To: Service Date: 10/30/16 Referred To: [facility] Notes: [address] (t) [phone] *Individual therapy appointment: 3pm, 10/30/16 with Randi Villalobos. Provider Referral Service Date: 11/19/16 Referred To: [facility] Notes: [address] (t) [phone] *Medication appointment: 11/19/16, 6:20pm with Dr. Galloway. Provider Referral Service Date: 10/24/16 Referred To: [facility] [address] [place] [id number] (t)[phone] *[facility] will see patient on the evening of 10/24/16 following patient's discharge from [facility]. Pharmacy used is [facility] in [place]. Provider Referral Service Date: 10/30/16 Referred To: [facility] Notes: [address] [phone] *Case management appointment with Beata Bailey on 10/30/16 at 2pm. Copies To: [facility]; Dr. Galloway
== END 2016-10-24 12:15 | DRG 750 ==
LOC: ERH 20:55 → CP SOUTH 10-20 13:23 → ERHI 10-20 13:23 → ENTRNSPT 10-20 16:41 → EDTRNSPT 10-20 17:15 → EDTRNSPTSTS 10-20 17:19 → CMPTRNSPT 10-20 17:21 → CP SOUTH 10-20 17:21 → ENRESERV 10-20 17:30 → CP SOUTH 10-21 10:10
PROVIDERS: Pediatrics; Registered Nurse Psychiatric/Mental Health; ADMIT Psychiatry & Neurology Addiction Medicine
DX: F25.9 Schizoaffective disorder, unspecified (principal); I10 Essential (primary) hypertension
CPT/HCPCS: 36415; 80307; 93005; 93010; 96372; G0463; G0480; J1200; J1630; J1631

== ENCOUNTER 2017-12-21 05:04 | Emergency (ER) | payer OTHER ==
[~2017-12-21] VITALS: Ht 175.3 cm; Wt 117.9 kg
[~2017-12-21 05:04] MED LIST changes: +HALDOL DEC100 MG/1 M IM; +NICORELIEF4 MG PO
--- NOTE | 2017-12-21 05:26 | ED GENERAL ADULT ---
History of Present Illness General Chief Complaint: Chest Pain Stated Complaint: "BIBA PER EMS CHEST HEAVY" Source: patient Exam Limitations: no limitations Vital Signs & Intake/Output Vital Signs & Intake/Output Vital Signs Date Time Temp Pulse Resp B/P B/P Pulse O2 O2 Flow FiO2 Mean Ox Delivery Rate 12/21 1315 98.0 70 19 140/68 100 Room Air 12/21 1127 98.2 68 17 138/72 98 Room Air 12/21 0930 97.9 65 18 142/70 100 Room Air 12/21 0758 98.1 66 18 148/72 100 Room Air ED Intake and Output 12/22 0000 12/21 1200 Intake Total Output Total 200 Balance -200 Output, Urine 200 Patient 260 lb Weight Allergies Coded Allergies: No Known Drug Allergies (08/18/15) Reconcile Medications Benztropine Mesylate 1 MG TABLET 1 TAB PO BID muscle stiffness Take 1 tab po BID. Haloperidol 10 MG TABLET 15 MG PO AT BEDTIME clear thoughts Take 1 and 1/2 tabs (15mg) po QHS. Haloperidol Decanoate (Haldol Decanoate 100) 100 MG/ML AMPUL 1 ML IM Q30D clear thoughts Take 100mg/ml IM Q30 days. Last given: 10/23/16. Next due: 11/23/16. Hydroxyzine Hydrochloride (Atarax) 50 MG TABLET 1 TAB PO BIDP PRN anxiety Take 1 tab po BID PRN. Nicotine Polacrilex (Nicorelief) 4 MG GUM 4 MG PO Q2 HRS NEEDED PRN nicotine cravings Take 1 piece po Q2HRs PRN for nicotine cravings. NTE 5 pieces/24 hours. Triage Note: PT BIBA FROM HOME C/O A BLISTER ON L FOOT FOR 3 YEARS THAT IS NOW "CAUSING MY HEART TO BE HEAVY." PT INSISTING "I NEED ANTIBIOTICS FOR MY HEART," PT HX OF SCHIZOPHRENIA AND STATES HE HAS NOT SLEPT IN 5 DAYS BECAUSE OF THIS. PT REPORTS +AH, -SI/-HI. +SMOKER, -ETOH PER PT. EVAL'D BY MD SHIPLEY. Triage Nurses Notes Reviewed? yes Onset: Gradual Duration: week(s):, waxing and waning Timing: recent history Injury Environment: home Severity: moderate Modifying Factors: Improves With: rest. Associated Symptoms: chest pain HPI: 32 yo gentleman with schizophrenia off meds x several weeks presents with a constellation of symptoms. He reports worsening auditory and visual hallucinations. He has not slept in 4- 5 days. He notes that he feels that there is an "infection in my body... a heaviness in my heart," as well as a pain on the bottom of his left foot for the past several days. He notes no fever, chills, abdominal pain, diarrhea. He is otherwise well. (Eliu Shipley MD) Past History Travel History Traveled to [place] past 21 day No Medical History Any Pertinent Medical History? see below for history Neurological: NONE EENT: NONE Cardiovascular: hypertension Respiratory: NONE Gastrointestinal: NONE Hepatic: NONE Renal: NONE Musculoskeletal: NONE Psychiatric: schizo affective disorder Endocrine: diabetes Blood Disorders: NONE Cancer(s): NONE History of MRSA: No History of VRE: No History of CDIFF: No Tetanus Vaccine: 11/24/12 Surgical History Surgical History: non-contributory Psychosocial History Who do you live with Patient/Self What is your primary language Palestinian Tobacco Use: Current Daily Use Daily Tobacco Use Amount/Type: => 5 Cigarettes daily Family History Hx Contributory? No (Eliu Shipley MD) Review of Systems Review of Systems Constitutional: Reports: no symptoms. EENTM: Reports: no symptoms. Respiratory: Reports: no symptoms. Cardiovascular: Reports: no symptoms. GI: Reports: no symptoms. Genitourinary: Reports: no symptoms. Musculoskeletal: Reports: no symptoms. Skin: Reports: no symptoms. Neurological/Psychological: Reports: no symptoms. Hematologic/Endocrine: Reports: no symptoms. Immunologic/Allergic: Reports: no symptoms. All Other Systems: Reviewed and Negative (Eliu Shipley MD) Physical Exam Physical Exam General Appearance: well developed/nourished, no apparent distress Head: atraumatic Eyes: Bilateral: normal appearance. Ears, Nose, Throat: normal pharynx, normal ENT inspection Neck: normal inspection, supple, full range of motion Respiratory: normal breath sounds Cardiovascular: regular rate/rhythm Gastrointestinal: normal bowel sounds, soft, non-tender Back: normal inspection Extremities: non infected, but tender to palpation, foot bunion 3x3cm on left plantar surface. Core Measures ACS in differential dx? No CVA/TIA Diagnosis: No Sepsis Present: No Sepsis Focused Exam Completed? No (Eliu Shipley MD) Progress Differential Diagnoses I considered the following diagnoses in my evaluation of the patient: schizophrenia vs other. as well as foot bunions, vs infection chest pain eval - i doubt MA, acs vs other. 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 I updated Moise on test results. I notified him that there seemed to be no need for an antibiotic at this time as there seems to be no acute infection. Apart from this, he offered no complaint. He then requested to leave the emergency department stating that he would walk home since he lived only a short distance from the hospital. (Rubina BURRIS,Jj Hensley) Departure Departure Condition: Stable Clinical Impression Primary Impression: Schizophrenia Secondary Impressions: Bunion, right foot, Chest pain Referrals: Patient Has No Primary Care Dr (PCP/Family) Departure Forms: Customer Survey General Discharge Information Comments pt to be signed out to dr. cespedes, 12/21/17, 7am. (Quinten BURRIS,Eliu Hurt) Departure Disposition: HOME OR SELF CARE Additional Instructions: Follow-up with your primary care doctor this week for reevaluation of your symptoms. Please take all of your medications as prescribed. Return if any concerns or sudden worsening. If you do not currently have a primary care physician then please contact the [facility] at the following phone number: . Please note that there might be incidental findings in your evaluation that are unrelated to the current emergency department visit. Please notify your primary care doctor about this emergency department visit in order to obtain and review all of the testing performed so that these incidental findings can be monitored as needed. If you had an x-ray performed, please understand that some fractures or other findings may not be seen on the initial set of x-rays. If your symptoms persist you might need a repeat set of x-rays to check for such a fracture. If you had a laceration evaluated, please understand that foreign bodies such as glass or wood may not be visible to the naked eye or on plain x-rays. If the wound becomes red, swollen, increasingly more painful or if there is any drainage from the wound, please have it reevaluated by a physician for the possibility of a retained foreign body. If you're unable to follow up as outlined in the discharge instructions please return to the emergency department. Thank you for choosing the [facility] Emergency Department for your care. It was a pleasure to serve you today. Jj Cespedes M.D. [facility] (Rubina BURRIS,Jj Hensley) Critical Care Note Critical Care Note Critical Care Time: non-applicable (Quinten BURRIS,Eliu Hurt) you might need a repeat set of x-rays to check for such a fracture. If you had a laceration evaluated, please understand that foreign bodies such as glass or wood may not be visible to the naked eye or on plain x-rays. If the wound becomes red, swollen, increasingly more painful or if there is any drainage from the wound, please have it reevaluated by a physician for the possibility of a retained foreign body. If you're unable to follow up as outlined in the discharge instructions please return to the emergency department. Thank you for choosing the [facility] Emergency Department for your care. It was a pleasure to serve you today. Jj Cespedes M.D. [facility] (Rubina BURRIS,Jj Hensley) Critical Care Note Critical Care Note Critical Care Time: non-applicable (Eliu Shipley MD)
--- NOTE | 2017-12-21 06:11 | RADIOLOGY REPORT ---
EXAMINATION: XR PORTABLE CHEST CLINICAL INFORMATION: Chest pain. COMPARISON: Chest radiograph 05/19/11 TECHNIQUE: Portable frontal view of the chest was obtained. FINDINGS: Hypoventilatory study. The cardiac silhouette is top normal in size in the setting of low lung volumes. No pneumothorax or large pleural effusion identified. There is relative asymmetric hazy opacification of the right hemithorax which may be related to patient body habitus. IMPRESSION: Markedly hypoventilatory study which limits overall evaluation. Asymmetric hazy opacification of the right hemithorax may be related to patient body habitus, though consider follow-up with repeat chest radiograph with patient in the upright position if clinically warranted.
[2017-12-21 06:15] LABS: ABSOLUTE BASOPHIL COUNT 0 /CUMM (0.0-0.2); ABSOLUTE EOSINOPHIL COUNT 0.4 /CUMM (0.0-0.7); ABSOLUTE GRANULOCYTE CT 2.2 /CUMM (1.4-6.5); ABSOLUTE LYMPH COUNT 2.8 /CUMM (1.2-3.4); ABSOLUTE MONOCYTE COUNT 0.6 /CUMM (0.10-0.60); BASOPHIL % 0.6 % (0.0-2.0); GRANULOCYTE % 36.3 % (42.2-75.2); HEMATOCRIT 41.5 % (42-52); MEAN CORPUSCULAR HGB 29.4 PG (27.0-31.0); MEAN CORPUSCULAR HGB CONC 33.8 G/DL (33.0-37.0); MEAN CORPUSCULAR VOLUME 86.7 FL (80.0-94.0); MEAN PLATELET VOLUME 8.8 FL (7.4-10.4); PLATELET COUNT 178 /CUMM (130-400); RBC DISTRIBUTION WIDTH 13.8 % (11.5-14.5); RED BLOOD CELL CT 4.78 /CUMM (4.70-6.10)
[2017-12-21 13:15] VITALS: BP 140/68
== END 2017-12-21 13:25 ==
LOC: ERH 05:04
PROVIDERS: Pediatrics
DX: F20.9 Schizophrenia, unspecified (principal); M21.611 Bunion of right foot; R07.9 Chest pain, unspecified; I10 Essential (primary) hypertension; E11.9 Type 2 diabetes mellitus without complications; F17.210 Nicotine dependence, cigarettes, uncomplicated
CPT/HCPCS: 71045; 80307; 93005; 93010; G0480